=== PATIENT | female | born 1995 | race Caucasian/White ===

== ENCOUNTER 2024-12-16 15:17 | Outpatient (OUT) | payer OTHER, SELFPAY ==
[2024-12-18 05:06] LABS: HIV Ab/p24 Ag Screen Non Reactive (Non Reactive)
[2024-12-18 06:07] LABS: HBsAg Screen Negative (Negative)
[2024-12-18 10:08] LABS: Rapid Plasma Reagin, Quant Non Reactive titer (NonRea<1:1)
== END 2024-12-16 15:18 | disposition home or self-care (01) ==
LOC: LAB 15:22
PROVIDERS: Visit Provider Obstetrics & Gynecology
DX: T74.21XD Adult sexual abuse, confirmed, subsequent encounter (principal); Z20.2 Contact with and (suspected) exposure to infections with a predominantly sexual mode of transmission
CPT/HCPCS: 36415; 86592; 87340; 87389

== ENCOUNTER 2025-01-01 20:53 | Outpatient (REF) | payer OTHER, SELFPAY ==
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
[2025-01-07 08:09] LABS: Age Gdln ACOG Testing Note (.); HPV Aptima Negative (Negative); IGP, Aptima HPV, rfx 16/18,45 Note (.)
== END 2025-01-01 20:54 | disposition home or self-care (01) ==
LOC: LAB 20:53
PROVIDERS: Visit Provider Physician Assistant
DX: Z01.419 Encounter for gynecological examination (general) (routine) without abnormal findings (principal)
CPT/HCPCS: 87624; 88175